=== PATIENT | female | born 1955 | race Caucasian/White ===

== ENCOUNTER 2024-09-04 13:28 | Emergency (ER) | payer MEDICARE, OTHER, SELFPAY ==
--- OUTSIDE RECORDS SUMMARY | 2024-08-24 09:00 | XMS_ITS | Encounter Summary ---
Author Organization [facility] Address [address] [place] [address] Care Team Providers Care Returns Clerk Name Role Phone Antoine Salguero MD Primary Care Provider Reason for Visit * Reason Comments 3 month MWV Encounter Details Date Type Department Care Team (Late st Contact Info) Description 08/24/2024 9:00 AM EDT Office Visit Internal Medicine Main [address] [place] [address] Antoine Salguero MD [address] [place] [address] Medicare annual wellness visit, subsequent (Primary Dx) Social History Tobacco Use Types Packs/Day Years Used Date Smoking Tobacco: Never Smokeless Tobacco: Never Alcohol Use Standard Drinks/Week Comments Yes 0 (1 standard drink = 0.6 oz pur e alcohol) occasional PHQ-2 Answer Date Recorded PHQ-9 Total Score 0 08/17/2024 Humiliation, Afraid, Rape, and Kick questionnair e Answer Date Recorded Within the last year, have y ou been afraid of your partner or ex-partner? No 08/24/2024 Within the last year, have y ou been humiliated or emotionally abused in other ways by your partner or ex-partner? No Within the last year, have y ou been kicked, hit, slapped, or otherwise physically hurt by your partner or ex-partner? No 08/24/2024 Within the last year, have y ou been raped or forced to have any kind of sexual activity by your partner or ex-partner? No 08/24/2024 Social Connection and Isolation Panel Answer Date Recorded In a typical week, how many times do you talk on the phone with family, friends, or neighbors? More than three times a week 08/24/2024 How often do you get togethe r with friends or relatives? More than three times a week 08/24/2024 How often do you attend chur or gnosticist services? Never 08/24/2024 Do you belong to any clubs o r organizations such as religion groups, unions, fraternal or athletic groups, or school groups? No 08/24/2024 How often do you attend meet ings of the clubs or organizations you belong to? Never 08/24/2024 Are you , , di vorced, , never , or living with a partner? 08/24/2024 AUDIT-C Answer Date Recorded Q1: How often do you have a drink containing alc ohol? 2-4 times a month 08/24/2024 Q2: How many drinks containi ng alcohol do you have on a typical day when you are drinking? 1 or 2 08/24/2024 Q3: How often do you have si x or more drinks on one occasion? Never 08/24/2024 Overall Financial Resource Strain (CARDIA) Answe r Date Recorded How hard is it for you to pa y for the very basics like food, housing, medical care, and heating? Not hard at all 08/24/2024 [facility] - Occupational Stress Questionnaire Answer Date Recorded Do you feel stress - tense, restless, nervous, or anxious, or unable to sleep at night because your mind is troubled all the time - these days? Not at all 08/24/2024 Exercise Vital Sign Answer Date Recorde d On average, how many days pe r week do you engage in moderate to strenuous exercise (like a brisk walk)? 7 days 08/24/2024 On average, how many minutes do you engage in exercise at this level? 60 min 08/24/2024 Hunger Vital Sign Answer Date Recorded Within the past 12 months, y ou worried that your food would run out before you got the money to buy more. Never true 08/25/19 25 Within the past 12 months, t he food you bought just didn't last and you didn't have money to get more. Never true 08/24/2024 PRAPARE - Transportation Answer Date Re corded In the past 12 months, has l ack of transportation kept you from medical appointments or from getting medications? No 08/03 In the past 12 months, has l ack of transportation kept you from meetings, work, or from getting things needed for daily living? No 08/24/2024 Housing Stability Vital Sign Answer Salvador e Recorded In the last 12 months, was t here a time when you were not able to pay the mortgage or rent on time? No 08/24/2024 In the past 12 months, how m any times have you moved where you were living? 1 08/24/2024 At any time in the past 12 m [facility], were you homeless or living in a fdc (including now)? No 08/24/2024 Comments Unknown Sex and Gender Information Value Date Recorded Sex Assigned at Not on file Legal Sex Female 11:20 AM EDT Gender Identity Not on file Sexual Orientation Not on file documented as of this encounter Last Filed Vital Signs Vital Sign Reading Time Taken Comments Blood Pressure 144/74 08/24/2024 10:04 AM EDT Pulse 61 08/24/2024 10:04 AM EDT Temperature 36.3 C (97.4 F) 08/24/2024 8:54 AM EDT Respiratory Rate 18 08/24/2024 8:54 AM EDT Oxygen Saturation 96% 08/24/2024 8:54 AM EDT Inhaled Oxygen Concentration - - Weight 100.6 kg (221 lb 11.2 oz) 08/24/2024 8:54 AM EDT Height 167.6 cm (5' 6 ) 08/24/2024 8:54 AM EDT Body Mass Index 35.78 08/24/2024 8:54 AM EDT documented in this encounter Functional Status * AUDIT-C Score Answer Date of Assessment Author 2 08/24/2024 9:23 AM EDT Antoine Salguero MD * Question Answer Date of Assessment Author Q1: How often do you have a drink containing alcohol? 2-4 times a month 08/24/2024 9:23 AM Antoine Mayen MD Q2: How many drinks containing alcohol do you have on a typical day when you are drinking? 1 or 2 08/24/2024 9:23 AM Antoine Mayen MD Q3: How often do you have six or more drinks on one occasion? Never 08/24/2024 9:23 AM Antoine Mayen MD documented as of this encounter Progress Notes * Antoine Salguero MD - 08/24/2024 9:00 AM EDT Images from the original note were not included. Sera Herndon a 69 year old female presents today for a reason for visit of 3 month MW . 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 She states she is pending an MRI of her hip. She did get a cortisone injection which did help initially. She could not tolerate rosuvastatin due to myalgias. She states blood pressure at home is usually 120s/70s, but has not been taking it. She reports having an eye exam 3 weeks ago and was recommended for possible blepharoplasty and to get a referral from her PCP. She is interested in possible weight loss medication such as wegovy. She states that her daughter is on the medication. Her power of assistant attorney general is Broderick Herndon, her . She is full code. Power of Last eye exam 2022. She will get the flu and COVID-vaccine at her pharmacy. No RSV or shingles vaccine. She did not get her colonoscopy in [place]. Colonoscopy 05/13/2024 3 polyps, due in 2027. DEXA donein 2023, osteopenia. Mammo done September 2023, normal Vitals: 08/24/24 0854 BP: (!) 148/70 BP Location: right arm Patient Position: sitting Pulse: 64 Resp: 18 Temp: 97.4 °F TempSrc: Temporal SpO2: 96% Weight: 221 lb 11.2 oz (100.6 kg) Height: 5' 6 (1.676 m) BMI (Calculated): 35.8 (BMI >30) Patient has a risk factor of obesity, refer to nutrition The following Histories were reviewed/updated: Tobacco Allergies Meds Med Hx Surg Hx Fam Hx Soc Hx No Known Allergies Current Outpatient Medications: acetaminophen (TYLENOL) 650 mg 8 hr tablet, Take 650 mg every 8 (eight) hours as needed by mouth for mild pain., Disp: , Rfl: albuterol HFA (PROVENTIL HFA;VENTOLIN HFA) 90 mcg/actuation inhaler, Inhale 1 puff every 6 (six) hours as needed for wheezing., Disp: , Rfl: amLODIPine (NORVASC) 5 mg tablet, Take 1 tablet once daily by mouth., Disp: 90 tablet, Rfl: 1 meloxicam (MOBIC) 15 mg tablet, Take 1 tablet once daily by mouth., Disp: 90 tablet, Rfl: 1 montelukast (SINGULAIR) 10 mg tablet, Take 1 tablet nightly by mouth., Disp: 90 tablet, Rfl: 1 rosuvastatin (Crestor) 5 mg tablet, Take 1 tablet daily by mouth. (Patient not taking: Reported on 08/24/2024), Disp: 90 tablet, Rfl: 1 No past medical history on file. Past Surgical History: Procedure Laterality Date ACHILLES TENDON REPAIR APPENDECTOMY BREAST LUMPECTOMY SECTION HYSTERECTOMY Family History Problem Relation Name Age of Onset Hemochromatosis Mother Social History Tobacco Use Smoking Status Never Smokeless Tobacco Never Social History Substance and Sexual Activity Alcohol Use Yes Comment: occasional Social History Substance and Sexual Activity Drug Use Never Lifestyle Activity Level: Moderate Exercise Type: Swimming Exercise Frequency: 2-3 times a week Sexually Active?: Yes Home Safety: Smoke Detectors?: Yes Stairs at Home?: No Seat Belt Use?: Yes Patient Care Team: Antoine Salguero MD as PCP - General Seble Mai MD (Emergency Medicine) Leonard Henderson MD (Inactive) (Hematology and Oncology) OLIVIA Reese (Dermatology) Myrtle Low DO (Inactive) (Gastroenterology) Mayur Dow MD (Orthopedic Surgery) Nick Walton PA-C (Orthopedic Surgery) Vision: Visual acuity screening completed OD: 20/40 OS: 20/40 OU: 20/40 Voluntary Advance Care Planning: Educational Materials Regarding: MWV Screenings Date/Time Cognitive Function Total 08/24/24 0904 0 08/17/24629 -- Date/Time CAGE Total 08/24/24 0904 -- 08/17/24629 0 (P) Date/Time PHQ-9 Total Score 08/24/24 0904 -- 08/17/2430 0 (P) Date/Time Fall Risk Total Score 08/24/24 0904 -- 08/17/24629 -- Date/Time Are you having any problems with the activities of Daily Living? 08/24/24 0904 -- 08/17/24629 No (P) Date/Time Problems with the Activities of Daily Livin08/24/24 0904 -- 08/17/24629 -- Date/Time Daily Living Problems: 08/24/24 0904 -- 08/17/24629 -- Date/Time Screening Not Performed: 08/24/24 0904 -- 08/17/24629 -- Date/Time Medical Reason Comments: 08/24/24 0904 -- 08/17/24629 -- Date/Time PHQ-9 Depression Screening Interpretation 08/24/24 0904 -- 08/17/24629 -- Date/Time Screening Not Performed 08/24/24 0904 -- 08/17/24629 -- Date/Time Comments 08/24/24903 -- 08/17/24629 -- Cognitive Assessment: Cognitive Function Total: 0 Pain Scale Ratin (08/24/2024 9:04 AM) No results found. Goals Addressed None Health Maintenance Topic Date Due Medicare Wellness Visit Never done Eye Exam Never done Cognitive Assessment Never done DEXA Scan Never done Hepatitis C Screening Never done Complete Physical Never done Health Maintenance Reviewed Never done Zoster (Shingrix) Vaccines (1 of 2) Never done Clinical Breast Exam Never done COVID-19 Vaccine (3 - Pfizer risk series) 06/13/2020 Influenza Vaccine (Season Ended) 2024 Total Body Exam 04/22/2025 Colorectal Cancer Screening 05/14/2027 Lipid Panel 08/17/2029 HIB Vaccines Aged Out IPV Vaccines Aged Out Hepatitis A Vaccines Aged Out Meningococcal Vaccine Aged Out HPV Vaccines Aged Out DTaP,Tdap,and Td Vaccines Discontinued Mammogram Discontinued Pap Smear Discontinued MMR Vaccines Discontinued Varicella Vaccines Discontinued RSV Immunization Discontinued Pneumococcal Vaccine: 65+ Years Discontinued Risk Factors Problem List Items Addressed This Visit None Today's Visit Diagnoses Codes Medicare annual wellness visit, subsequent - Primary ICD-10-CM: Z00.00 ICD-9-CM: V70.0 Encounter Diagnoses Code Name Primary? Z00.00 Medicare annual wellness visit, subsequent Yes 1. Medicare annual wellness visit, subsequent Her power of assistant attorney general is Broderick Herndon, her . She is full code. Power of Last eye exam 2022. She will get the flu and COVID-vaccine at her pharmacy. No RSV or shingles vaccine. She did not get her colonoscopy in [place]. Colonoscopy 05/13/2024 3 polyps, due in 2027. DEXA donein 2023, osteopenia. Mammo done September 2023, normal Follow up in 3 months for asthma Antoine Salguero MD Department of Internal Medicine [address] [place] [phone] documented in this encounter Plan of Treatment Upcoming Encounters Date Type Department Care Team (Late st Contact Info) Description 11/24/2024 8:00 AM EDT Office Visit Internal Medicine Main [address] [place] [phone] Antoine Salguero MD [address] [place] [phone] 04/28/2025 8:00 AM EST Office Visit Dermatology [place] [address] [place] [address] Ludy Das PA [address] [place] [address] documented as of this encounter Visit Diagnoses Diagnosis Medicare annual wellness visit, subsequent- Primary documented in this encounter Care Teams Returns Clerk Relationship Specialty Start Date End Date Antoine Salguero MD [address] [place] [id number] PCP - General 03/06/23 documented as of this encounter
[2024-09-04 13:34] VITALS: BP 177/70; PULSE 84; TEMP 37.3; O2SAT 97; BMI 35.7
--- OUTSIDE RECORDS SUMMARY | 2024-09-04 13:40 | XMS_ITS | Encounter Summary ---
Author Organization [facility] Address [address] [place] [address] Care Team Providers Care Seam Steamer Name Role Phone Antoine Salguero MD Primary Care Provider Encounter Details Date Type Department Care Team (Late Contact Info) Description 08/18/2024 Results Follow-Up Internal Medicine Main [address] [place] [address] Anotine Salguero MD [address] [place] [phone] CBC WITH AUTOMATED DIFF, COMPREHENSIVE METABOLIC PANEL, LIPID PROFILE, HEMOGLOBIN A1C Social History Tobacco Use Types Packs/Day Years Used Date Smoking Tobacco: Never Smokeless Tobacco: Never Alcohol Use Standard Drinks/Week Comments Yes 0 (1 standard drink = 0.6 oz pur e alcohol) occasional PHQ-2 Answer Date Recorded PHQ-9 Total Score 0 08/17/2024 Comments Unknown Sex and Gender Information Value Date Recorded Sex Assigned at Not on file Legal Sex Female 11:20 AM EDT Gender Identity Not on file Sexual Orientation Not on file documented as of this encounter Plan of Treatment Upcoming Encounters Date Type Department Care Team (Late Contact Info) Description 11/24/2024 8:00 AM EDT Office Visit Internal Medicine Main [address] [place], [place] [phone] Antoine Salguero MD [address] [place] [address] 04/28/2025 8:00 AM EST Office Visit Dermatology [place] [address] [place] [address] Ludy Das PA [address] [place] [address] documented as of this encounter Visit Diagnoses Not on filedocumented in this encounter Care Teams Seam Steamer Relationship Specialty Start Date End Date Antoine Salguero MD [address] [place] [id number] PCP - General 03/06/23 documented as of this encounter
--- OUTSIDE RECORDS SUMMARY | 2024-09-04 13:40 | XMS_ITS | Encounter Summary ---
Author Organization [facility] Address [address] [place] [facility] [place] [address] Care Team Providers Care Sales Product Manager Name Role Phone Alyssa Navarrete MD Unavailable Alyssa Navarrete MD Primary Care Provider [phone] Alyssa Navarrete MD Unavailable Unallocated, Noms Provider Primary Care Provi quan Encounter Details Date Type Department Care Team (Late st Contact Info) Description 11/11/2023 Orders Only [facility] [address] [facility] [place] [address] Alyssa Navarrete MD [address] [place] [address] Social History Tobacco Use Types Packs/Day Years Used Date Smoking Tobacco: Never Smokeless Tobacco: Never Alcohol Use Standard Drinks/Week Comments Yes 1 (1 standard drink = 0.6 oz pure alcohol) caffeine intake: 1-2 cups per day tea Humiliation, Afraid, Rape, and Kick questionnair e Answer Date Recorded Within the last year, have y ou been afraid of your partner or ex-partner? No 08/08/2022 Within the last year, have y ou been humiliated or emotionally abused in other ways by your partner or ex-partner? No Within the last year, have y ou been kicked, hit, slapped, or otherwise physically hurt by your partner or ex-partner? No 08/08/2022 Within the last year, have y ou been raped or forced to have any kind of sexual activity by your partner or ex-partner? No 08/08/2022 Social Connection and Isolat ion Panel [NHANES] Answer Date Recorded In a typical week, how many times do you talk on the phone with family, friends, or neighbors? More than three times a week 08/08/2022 How often do you get togethe r with friends or relatives? Three times a week 08/08/2022 How often do you attend chur ch or sikh services? 1 to 4 times per year 08/08/2022 Do you belong to any clubs o r organizations such as protestant groups, unions, fraternal or athletic groups, or school groups? Yes 08/08/2022 How often do you attend meet ings of the clubs or organizations you belong to? More than 4 times per year 08/08/2022 Are you , , di vorced, , never , or living with a partner? 08/08/2022 AUDIT-C Answer Date Recorded Q1: How often do you have a drink containing alc ohol? 2-4 times a month 08/08/2022 Q2: How many drinks containi ng alcohol do you have on a typical day when you are drinking? 1 or 2 08/08/2022 Q3: How often do you have si x or more drinks on one occasion? Never 08/08/2022 Overall Financial Resource Strain (CARDIA) Answe r Date Recorded How hard is it for you to pa y for the very basics like food, housing, medical care, and heating? Not hard at all 08/08/2022 PHQ-2 Answer Date Recorded Patient Health Questionnaire-2 Score 0 08/02/2023 [facility] Occupat ional Health - Occupational Stress Questionnaire Answer Date Recorded Do you feel stress - tense, restless, nervous, or anxious, or unable to sleep at night because your mind is troubled all the time - these days? Not at all 08/08/2022 Exercise Vital Sign Answer Date Recorde d On average, how many days pe r week do you engage in moderate to strenuous exercise (like a brisk walk)? 3 days 08/08/2022 On average, how many minutes do you engage in exercise at this level? 30 min 08/08/2022 Hunger Vital Sign Answer Date Recorded Within the past 12 months, y ou worried that your food would run out before you got the money to buy more. Never true 08/09/19 Within the past 12 months, t he food you bought just didn't last and you didn't have money to get more. Never true 08/08/2022 PRAPARE - Transportation Answer Date Re corded In the past 12 months, has l ack of transportation kept you from medical appointments or from getting medications? Yes 09/2022 In the past 12 months, has l ack of transportation kept you from meetings, work, or from getting things needed for daily living? Yes 08/08/2022 Housing Stability Vital Sign Answer Salvador e Recorded In the last 12 months, was t here a time when you were not able to pay the mortgage or rent on time? No 08/08/2022 In the last 12 months, how many places have you lived? 2 08/08/2022 In the last 12 months, was t here a time when you did not have a steady place to sleep or slept in a usp (including now)? No 08/08/2022 Comments Unknown Sex and Gender Information Value Date Recorded Sex Assigned at Female 08/08/2022 9:34 AM EDT Legal Sex Female 7:01 PM EDT Gender Identity Female 05/16/2022 7:01 PM EDT Sexual Orientation Not on file documented as of this encounter Plan of Treatment Not on file documented as of this encounter Procedures Procedure Name Priority Date/Time Associated Diagnosis Comments DIABETIC RETINOPATHY SCREENING - OU - BOTH EYES Routine 11/08/2023 3:26 PM EDT documented in this encounter Results * Diabetic Retinopathy Screening - OU - Both Eyes (11/08/2023 3:26 PM EDT) Anatomical Region Laterality Modality Head Other us Alyssa Navarrete MD OPHTH PHOTOGRAPHY Final Result documented in this encounter Visit Diagnoses Not on filedocumented in this encounter Additional Health Concerns Assessment Noted Time PHQ-9 Depression Total Score: 0 08/10/19 23 10:00 AM EDT documented as of this encounter Care Teams Sales Product Manager Relationship Specialty Start Date End Date Alyssa Navarrete MD [address] [place], [place] [phone] PCP - ACO Reach 07/03/23 04/09/24 Alyssa Navarrete MD [address] [place] [address] PCP - General Family Medicine 08/29/23 06/17/24 Alyssa Navarrete MD [address] [place], [place] [phone] PCP - ACO Reach 04/17/24 06/04/24 Unallocated, Noms Provider, [address] [place] [address] PCP - General Family Medicine 06/18/24 documented as of this encounter
--- OUTSIDE RECORDS SUMMARY | 2024-09-04 13:40 | XMS_ITS | Encounter Summary ---
Author Organization [facility] Address [address] [facility] [place] [address] Care Team Providers Care Disability Services Coordinator Name Role Phone Alyssa Navarrete MD Unavailable Alyssa Navarrete MD Primary Care Provider [phone] Unallocated, Noms Provider Primary Care Provi quan Alyssa Navarrete MD Unavailable Alyssa Navarrete MD Primary Care Provider [phone] Unallocated, Noms Provider Primary Care Provi quan Alyssa Navarrete MD Primary Care Provider [phone] Alyssa Navarrete MD Unavailable Unallocated, Noms Provider Primary Care Provi quan Encounter Details Date Type Department Care Team (Late st Contact Info) Description 09/03/2022 Abstract [facility] [address] [facility] [place] [address] Alyssa Navarrete MD [address] [place] [address] Social History Tobacco Use Types Packs/Day Years Used Date Smoking Tobacco: Never Smokeless Tobacco: Never Alcohol Use Standard Drinks/Week Comments Not Currently 0 (1 standard drink = 0.6 oz pur e alcohol) Humiliation, Afraid, Rape, and Kick questionnair e [...] often do you attend chur ch or yarsani services? 1 to 4 times per year 08/08/2022 Do you belong to any clubs o r organizations such as shinto groups, unions, fraternal or athletic groups, or [...] Date Recorded Patient Health Questionnaire-2 Score 0 08/09/2022 [facility]ational [facility] Questionnaire Answer Date [...] money to buy more. Never true 08/09/19 23 Within the past 12 months, t he [...] place to sleep or slept in a half-way (including now)? No 08/08/2022 Comments Unknown Sex and Gender Information Value Date Recorded Sex Assigned at Female 08/08/2022 9:34 AM EDT Legal Sex Female 7:01 PM EDT Gender Identity Female 05/16/2022 7:01 PM EDT Sexual Orientation Not on file COVID-19 Exposure Response Date Recorded In the last 10 days, have yo u been in contact with someone who was confirmed or suspected to have Coronavirus/COVID-19? No / Unsure 09/03/2022 9:10 AM EDT documented as of this encounter Plan of Treatment Not on file documented as of this encounter Visit Diagnoses Not on filedocumented in this encounter Additional Health Concerns Assessment Noted Time PHQ-9 Depression Total Score: 0 08/10/19 10:00 AM EDT documented as of this encounter Care Teams Disability Services Coordinator Relationship Specialty Start Date End Date Alyssa Navarrete MD [address] [place] [address] PCP - ACO Reach 07/26/22 05/02/23 Alyssa Navarrete MD [address] [place] [address] PCP - General 08/08/22 03/18/23 Unallocated, Keesha Mullen MD [address] [place], [place] [address] [place] [address] PCP - General Family Medicine 03/19/23 08/08/23 Alyssa Navarrete MD [address] [facility] [place] [address] PCP - ACO Reach 07/03/23 04/09/24 Alyssa Navarrete MD [address] [place] [address] PCP - General Family Medicine 08/09/23 08/25/23 Unallocated, [place] [address] [place] [address] PCP - General Family Medicine 08/26/23 08/28/23 Alyssa Navarrete MD [address] [facility] [place] [address] PCP - General Family Medicine 08/29/23 06/17/24 Alyssa Navarrete MD [address] [facility] [place] [address] PCP - ACO Reach 04/17/24 06/04/24 Unallocated, Noms Provider, [address] [place] [address] PCP - General Family Medicine 06/18/24 documented as of this encounter
--- OUTSIDE RECORDS SUMMARY | 2024-09-04 13:40 | XMS_ITS | Encounter Summary ---
Author Organization [facility] Address [address] [place] [address] Care Team Providers Care Tobacco Stemmer Name Role Phone Antoine Salguero MD Primary Care Provider [phone] Encounter Details Date Type Department Care Team (Late st Contact Info) Description 08/26/2024 Results Follow-Up Orthopaedics Main [address] [place] [address] Nick Walton PA-C [address] [place] [address] MRI HIP WITHOUT CONTRAST Social History Tobacco Use Types Packs/Day Years [...] 08/24/2024 How often do you attend chur ch or islam services? Never 08/24/2024 Do you belong to any clubs o r organizations such as islam groups, unions, fraternal or athletic groups, or [...] and heating? Not hard at all 08/24/2024 [facility] of Occupat ional Health - Occupational Stress [...] any time in the past 12 m [facility], were you homeless or living in a alf (including now)? No 08/24/2024 Comments Unknown Sex [...] EDT Office Visit Internal Medicine Main [address] [place] [address] Antoine Salguero MD [address] [place] [address] 04/28/2025 8:00 AM EST Office Visit Dermatology [place] [address] [place] [address] Ludy Das PA [address] [place] [address] documented as of this encounter Visit Diagnoses Not on filedocumented in this encounter Care Teams Tobacco Stemmer Relationship Specialty Start Date End Date Antoine Salguero MD [address] [place] [address] PCP - General 03/06/23 documented as of this encounter
--- OUTSIDE RECORDS SUMMARY | 2024-09-04 13:40 | XMS_ITS | Encounter Summary ---
Author Organization [facility] Address [address] [place] [address] Care Team Providers Care Bail Attacher Name Role Phone Antoine Salguero MD Primary Care Provider [phone] Encounter Details Date Type Department Care Team (Late st Contact Info) Description 05/13/2024 Orders Only Gastroenterology Main [address] [place] [address] Myrtle Low DO [address] [place] [address] Social History Tobacco Use Types Packs/Day Years Used Date Smoking Tobacco: Never Smokeless Tobacco: Never Alcohol Use Standard Drinks/Week Comments Yes 0 (1 standard drink = 0.6 oz pur e alcohol) occasional Comments Unknown Sex and Gender Information Value Date Recorded Sex Assigned at Not on file Legal Sex Female 11:20 AM EDT Gender Identity Not on file Sexual Orientation Not on file documented as of this encounter Plan of Treatment Upcoming Encounters Date Type Department Care Team (Late st Contact Info) Description 11/24/2024 8:00 AM EDT Office Visit Internal Medicine Main [address] [place] [address] Antoine Salguero MD [address] [place] [address] 04/28/2025 8:00 AM EST Office Visit Dermatology [place] [address] [place] [address] Ludy Das PA [address] [place] [address] documented as of this encounter Visit Diagnoses Not on filedocumented in this encounter Care Teams Bail Attacher Relationship Specialty Start Date End Date Antoine Salguero MD [address] [place] [address] PCP - General 03/06/23 documented as of this encounter
--- OUTSIDE RECORDS SUMMARY | 2024-09-04 13:40 | XMS_ITS | Encounter Summary ---
Author Organization [facility] Address [address] [place] [address] Care Team Providers Care Honing Machine Set Up Operator Tool Name Role Phone Antoine Salguero MD Primary Care Provider [phone] Encounter Details Date Type Department Care Team (Late st Contact Info) Description 05/14/2024 Orders Only Gastroenterology Main [address] [place] [address] Myrtle Low, [address] [place] [address] Screening for malignant neoplasm of colon Social History Tobacco Use Types Packs/Day Years [...] EDT Office Visit Internal Medicine Main [address] [place] [address] Antoine Salguero MD [address] [place] [address] 04/28/2025 8:00 AM EST Office Visit Dermatology [place] [address] [place] [address] Ludy Das PA [address] [place] [address] documented as of this encounter Procedures Procedure Name Priority Date/Time Associated Diagnosis Comments COLONOSCOPY (G0121) Routine 05/13/2024 Screening for malignant neoplasm of colon documented in this encounter Results * Colonoscopy Screening - MEDICARE (G0121) (05/13/2024) Myrtle Low DO GI PROC ORDERABLES Final Result documented in this encounter Visit Diagnoses Diagnosis Screening for malignant neoplasm of colon documented in this encounter Care Teams Honing Machine Set Up Operator Tool Relationship Specialty Start Date End Date Antoine Salguero MD [address] [place] [address] PCP - General 03/06/23 documented as of this encounter
--- OUTSIDE RECORDS SUMMARY | 2024-09-04 13:40 | XMS_ITS | Clinical Summary ---
Author Organization [facility] Address [address] [place] [address] Care Team Providers Care Senior Portfolio Manager Name Role Phone Unallocated, [facility] Provider Primary Care Provi quan Allergies No known active allergies Medications albuterol HFA 90 mcg/act inhalerIndications: Allergic rhinitis due to pollen, unspecified seasonality Inhale 1 puff every 6 (six) hours if needed for wheezing. 18 g 3 3 Active atorvastatin (Lipitor) 10 MG tabletIndications:H yperlipidemia, unspecified hyperlipidemia type Take 1 tablet (10 mg) by mouth Daily 100 tablet 3 4 Active amLODIPine (Norvasc) 5 MG tabletIndications:E ssential hypertension Take 1 tablet (5 mg) by mouth Daily 90 tablet 3 4 Active montelukast (Singulair) 10 MG tabletIndications:A llergic rhinitis due to pollen, unspecified seasonality Take 1 tablet (10 mg) by mouth at bedtime 30 tablet 11 4 09/12/19 25 Active meloxicam (Mobic) 15 MG tabletIndications:O ther chronic pain TAKE 1 TABLET BY MOUTH IN THE MORNING 40 tablet 5 Active Active Problems Problem Noted Date Diagnosed Date Osteopenia 08/10/2023 Body mass index (BMI) 36.0-36.9, adult 4 Abnormal mammogram of right breast 08/08/2022 Asthma in adult 08/08/2022 Assessment & Plan (08/09/2022 4:54 PM EDT): Spirometry today wnl. Sx may be related to marquita vs postnasal discharge Rx for flonase and singulair Con t to [facility] prn, recheck in 1 mnth Colon adenoma 08/08/2022 Overview (08/09/2022): Reepat colonoscopy 2024 Ductal carcinoma in situ (DCIS) of breast 2022 Dyslipidemia 08/08/2022 Essential hypertension 08/08/2022 Assessment & Plan (08/09/2022 4:55 PM EDT): Good contorl will stop low dose marquita inh due to cough and rehceck in month Familial hemochromatosis 08/08/2022 H/O: hysterectomy 08/08/2022 Morbid (severe) obesity due to excess calories 0 08/08/2022 Other specified disorders of bone density and structure, right thigh 08/08/2022 Primary osteoarthritis involving multiple joints 08/08/2022 Type 2 diabetes mellitus with other specified co mplication 08/08/2022 Assessment & Plan (08/09/2022 4:56 PM EDT): Due for labs Mild intermittent asthma 02/02/2016 Primary osteoarthritis 02/16/2015 Resolved Problems Problem Noted Date Diagnosed Date Resolved Date Constipation 08/08/2022 08/09/2022 Benign neoplasm of colon 04/11/201811/2022 Immunizations Immunization Administration Dates Next Due Influenza, High Dose Seasona l, Preservative Free 12/02/2019,12/07/2018 Influenza, High-dose Seasona l, Quadrivalent, Preservative Free 11/29/2020 Influenza, Injectable, MDCK, preservative free 01/07/2017 Influenza, injectable, quadr ivalent, preservative free 12/03/2019,12/08/2018,12/02/2017,2015 Influenza, seasonal, injectable 12/06/2016,11/23 Influenza, seasonal, injecta ble, preservative free 12/05/2017,01/07/2017,12/20/2015 Novel [id number], preservative-free 02/21/2009 Pneumococcal Conjugate PCV 20 07/10/2021 Zoster, Recombinant 11/07/2018 Family History Medical History Relation Name Comments epilepsy Brother 1 Alcohol abuse Brother 2 Guy Matthews Alcohol abuse Brother 3 Dereje Matthews Intellectual Disability Brother 4 Boaz Matthews Learning disabilities Brother 4 Boaz Matthews Alcohol abuse Father Boaz Matthews Cirrhosis Father Boaz Matthews Arthritis Mother Josi Matthews COPD Mother Josi Matthews Cancer Mother Josi Matthews Diabetes Mother Josi Matthews Heart disease Mother Josi Matthews Heart failure Mother Josi Matthews Hemochromatosis Mother Josi Matthews Hypertension Mother Josi Matthews Miscarriages / Stillbirths Mother Josi Matthews Uterine cancer Mother Josi Matthews Cancer Sister Deepika Restrepo Relation Name Status Comments Brother 1 Brother 2 Guy Matthews Brother 3 Dereje Matthews Brother 4 Boaz Matthews Father Boaz Matthews Mother Josi Matthews Sister Deepika Restrepo Social History Tobacco Use Types Packs/Day Years Used Date Smoking Tobacco: Never Smokeless Tobacco: Never Tobacco Cessation:Counseling Given: Not Answered Alcohol Use Standard Drinks/Week Comments Yes 1 [...] week 08/08/2022 How often do you attend [facility] or restoration services? 1 to 4 times per year 08/08/2022 Do you belong to any clubs o r organizations such as holiness groups, unions, fraternal or athletic groups, or [...] Recorded Patient Health Questionnaire-2 Score 0 08/02/2023 [facility] of Occupat ional Health - Occupational Stress [...] place to sleep or slept in a care home (including now)? No 08/08/2022 Comments Unknown Sex and Gender Information Value Date Recorded Sex Assigned at Female 08/08/2022 9:34 AM EDT Legal Sex Female 7:01 PM EDT Gender Identity Female 05/16/2022 7:01 PM EDT Sexual Orientation Not on file Last Filed Vital Signs Vital Sign Reading Time Taken Comments Blood Pressure 122/82 08/09/2023 11:03 AM EDT Pulse 60 08/09/2023 11:03 AM EDT Temperature - - Respiratory Rate 16 08/09/2023 11:03 AM EDT Oxygen Saturation - - Inhaled Oxygen Concentration - - Weight 101 kg (223 lb) 08/09/2023 11:03 AM EDT Height 167 cm (5' 5.75 ) 08/09/2023 11:03 AM EDT Body Mass Index 36.27 08/09/2023 11:03 AM EDT Plan of Treatment Health Maintenance Due Date Last Done Comments CT Colonography 1954 FIT-DNA 1954 FIT 1954 FOBT 1955 Sigmoidoscopy 1954 Diabetes: Hemoglobin A1C 11/09/2023 024, 08/09/2022, 09/29/2021, Additional history exists Diabetes: Urine Protein Screening 08/08/2024 08/09/2023, 08/09/2022, 07/10/2021, Additional history exists Medicare Annual Wellness (AWV) 08/08/2024 0 08/09/2023, 08/09/2022, 07/10/2021 Influenza Vaccine (#1) 2024 , 12/03/2019, 12/02/2019, Additional history exists Diabetes: Retinopathy Screening 11/07/2025 4 Colonoscopy 04/03/2028 04/03/2018, 04/03/2018 Colorectal Cancer Screening 04/03/2028 Pneumococcal Vaccine: 65+ Years Completed 2 Mammogram Discontinued 07/20/2021, 07/02, 06/20/2020, Additional history exists Procedures Procedure Name Priority Date/Time Associated Diagnosis Comments DIABETIC RETINOPATHY SCREENING - OU - BOTH EYES Routine 11/08/2023 3:26 PM EDT MICROALBUMIN / CREATININE URINE RATIO Routine 08/09/2023 3:00 PM EDT Type 2 diabetes mellitus without complication, without long-term current use of insulin (HCC) POCT GLYCOSYLATED HEMOGLOBIN (HGB A1C) Routine 08/09/2023 11:25 AM EDT Type 2 diabetes mellitus without complication, without long-term current use of insulin (HCC) BI MAMMOGRAM SCREENING BILATERAL Routine 07/20/2021 12:00 PM EDT COLONOSCOPY Routine 04/03/2018 12:00 PM EST from Last 3 Months or Most Recently Relevant to Health Maintenance Results * Diabetic Retinopathy Screening - OU - Both Eyes (11/08/2023 3:26 PM EDT) Anatomical Region Laterality Modality Head Other us Alyssa Navarrete MD OPHTH PHOTOGRAPHY Final Result * Microalbumin / creatinine urine ratio (08/09/2023 3:00 PM EDT) CREATININE, RANDOM URINE 32 20 - 275 mg/dL [facility] ALBUMIN, URINE <0.2 See Note: mg/dL [facility] Comment: Reference Range: Reference Range Not established ALBUMIN/CREATININE RATIO, RANDOM URINE NOTE <30 mg/g creat [facility] Comment: NOTE: The urine albumin value is less than 0.2 mg/dL therefore we are unable to calculate excretion and/or creatinine ratio. The ADA defines abnormalities in albumin excretion as follows: Albuminuria Category Result (mg/g creatinine) Normal to Mildly increased <30 Moderately increased 30-299 Severely increased > OR = 300 The ADA recommends that at least two of three specimens collected within a 3-6 month period be abnormal before considering a patient to be within a diagnostic category. Urine Urine specimen obtained by clean catch procedure / Unknown 08/09/2023 3:00 PM EDT 08/09/2023 3:00 PM EDT Narrative [facility] - 08/12/2023 3:28 PM EDT SPLIT 08/09/2023 FROM [id number] Resulting Agency Comment Performing Organization Information Site ID: [id number] Name: [facility] Address: [address] [facility] [place] [address] Director: Luan Miranda MD us Alyssa Navarrete MD LAB URINE ORDERABLES Final Resul t [facility] * POCT glycosylated hemoglobin (Hb A1C) docked device (08/09/2023 11:25 AM EDT) Hemoglobin A1C 5.9 Blood Venous blood specimen / Unknown 08/09/2023 11:25 AM EDT us Alyssa Navarrete MD POINT OF CARE TEST ENTER/EDIT OR DERABLES Final Result * Bilateral screening mammogram (07/20/2021 12:00 PM EDT) Anatomical Region Laterality Modality Breast Bilateral Mammography Narrative 07/20/2021 12:00 PM EDT PERFORMED AT [facility] LOCATION:[id number] benign Procedure Note CONVERSION, GENERIC - 09/07/2022 PERFORMED AT [facility] LOCATION:[id number] benign us Alyssa Navarrete MD IMG BI PROCEDURES Final Result * Colonoscopy (04/03/2018 12:00 PM EST) Anatomical Region Laterality Modality Endoscopy 04/03/2018 12:0 0 PM EST Narrative 04/03/2018 12:00 PM EST PERFORMED AT [facility] LOCATION:[id number] Procedure Note CONVERSION, GENERIC - 07/18/2022 PERFORMED AT [facility] LOCATION:[id number] Alyssa Navarrete MD ENDOSCOPY PROCEDURE ORDERABLES F inal Result from Last 3 Months or Most Recently Relevant to Health Maintenance Insurance MEDICARE [employer] Care Teams Senior Portfolio Manager Relationship Specialty Start Date End Date Unallocated, [facility] Provider, [address] [place] [address] PCP - General Family Medicine 06/18/24
--- OUTSIDE RECORDS SUMMARY | 2024-09-04 13:40 | XMS_ITS | Clinical Summary ---
Author Organization [facility] Address [address] [place] [address] Phone Care Team Providers Care Roads Superintendent Name Role Phone Unavailable Primary Care Provider Unavailabl e Social History Tobacco Use Types Packs/Day Years Used Date Smoking Tobacco: Never Assessed Comments Unknown Sex and Gender Information Value Date Recorded Sex Assigned at Not on file Legal Sex Female 1:38 AM EST Gender Identity Not on file Sexual Orientation Not on file Plan of Treatment Health Maintenance Due Date Last Done Comments CT Colonography 1954 Colonoscopy 1954 Colorectal Cancer Screening 1954 FIT-DNA (Cologuard) 1954 FIT 1954 Lipid Panel 1954 Sigmoidoscopy 1954 Hepatitis C Screening 01/07/1972 DTaP/Tdap/Td Vaccines (1 - Tdap) 01/07/1976 Mammogram 1994 Pneumococcal Vaccine (1 of 1 - PCV) 01/07/2004 Zoster Vaccines (1 of 2) 01/07/2004 Yearly Adult Physical 07/11/2022 07/10/2021 , 02/15/2020 COVID-19 Vaccine (3 - 2023-2 5 season) 2023 05/16/2020, 04/25/2020 Influenza Vaccine (#1) 2024 11/29/2020 RSV High Risk: (Elderly (60+ ) or Population) (1 - 1-dose 75+ series) 2029 Bone Density Scan Completed 08/04/2020 HIB Vaccines Aged Out No longer eligi ble based on patient's age to complete this topic HPV Vaccines (No Doses Required) Completed Hepatitis A Vaccines Aged Out No long er eligible based on patient's age to complete this topic Hepatitis B Vaccines Aged Out No long er eligible based on patient's age to complete this topic IPV Vaccines Aged Out No longer eligi ble based on patient's age to complete this topic Meningococcal Vaccine Aged Out No blanca eladia eligible based on patient's age to complete this topic Rotavirus Vaccines Aged Out No longer eligible based on patient's age to complete this topic
--- OUTSIDE RECORDS SUMMARY | 2024-09-04 13:40 | XMS_ITS | Encounter Summary ---
Author Organization [facility] Address [address] [place] [address] Care Team Providers Care Digital Forensics Investigator Name Role Phone Alyssa Navarrete MD Unavailable Alyssa Navarrete MD Primary Care Provider [phone] Unallocated, [facility] Provider Primary Care Provi quan Alyssa Navarrete MD Unavailable Alyssa Navarrete MD Primary Care Provider [phone] Unallocated, [facility] Provider Primary Care Provi quan Alyssa Navarrete MD Primary Care Provider [phone] Alyssa Navarrete MD Unavailable Unallocated, [facility] Provider Primary Care Provi quan Reason for Visit * Reason Comments Med Refill Encounter Details Date Type Department Care Team (Late st Contact Info) Description 10/20/2022 Refill [facility] [address] [place] [phone] Kaylynn Arriaga NP [address] [place], [place] [phone] Other chronic pain Social History Tobacco Use Types Packs/Day Years [...] week 08/08/2022 How often do you attend [facility] or uatsdin services? 1 to 4 times per year 08/08/2022 Do you belong to any clubs o r organizations such as restorationist groups, unions, fraternal or athletic groups, or [...] Recorded Patient Health Questionnaire-2 Score 0 08/09/2022 [facility] of Occupat ional Health - Occupational [...] as of this encounter Visit Diagnoses Diagnosis Other chronic pain documented in this encounter Additional Health Concerns Assessment Noted Time PHQ-9 Depression Total Score: 0 08/10/19 23 10:00 AM EDT documented as of this encounter Care Teams Digital Forensics Investigator Relationship Specialty Start Date End Date Alyssa Navarrete MD [address] [place] [address] PCP - ACO Reach 07/26/22 05/02/23 Alyssa Navarrete MD [address] [place] [address] PCP - General 08/08/22 03/18/23 Unallocated, Keesha Mullen MD [address] [place] [address] PCP - General Family Medicine 03/19/23 08/08/23 Alyssa Navarrete MD [address] [place] [address] PCP - ACO Reach 07/03/23 04/09/24 Alyssa Navarrete MD [address] [place] [address] PCP - General Family Medicine 08/09/23 08/25/23 Unallocated, Keesha Mullen MD [address] [place], [place] [address] [address] PCP - General Family Medicine 08/26/23 08/28/23 Alyssa Navarrete MD [address] [place] [address] PCP - General Family Medicine 08/29/23 06/17/24 Alyssa Navarrete MD [address] [place] [address] PCP - ACO Reach 04/17/24 06/04/24 Unallocated, Keesha Mullen MD [address] [place] [address] [place] [address] PCP - General Family Medicine 06/18/24 documented as of this encounter
--- OUTSIDE RECORDS SUMMARY | 2024-09-04 13:40 | XMS_ITS | Encounter Summary ---
Author Organization [facility] Address [address] [facility] [place] [address] Care Team Providers Care Automation Qa Lead Name Role Phone Alyssa Navarrete MD Unavailable Alyssa Navarrete MD Primary Care Provider [phone] Unallocated, [facility] Provider Primary Care Provi quan Alyssa Navarrete MD Unavailable Alyssa Navarrete MD Primary Care Provider [phone] Unallocated, [facility] Provider Primary Care Provi quan Alyssa Navarrete MD Primary Care Provider [phone] Alyssa Navarrete MD Unavailable Unallocated, [facility] Provider Primary Care Provi quan Encounter Details Date Type Department Care Team (Late st Contact Info) Description 09/10/2022 Abstract [facility] [address] [place] [address] Alyssa Navarrete MD [address] [place] [address] Social History Tobacco Use Types [...] week 08/08/2022 How often do you attend [facility] or religion services? 1 to 4 times per year 08/08/2022 Do you belong to any clubs o r organizations such as anglican groups, unions, fraternal or athletic groups, or [...] Recorded Patient Health Questionnaire-2 Score 0 08/09/2022 [facility] of Occupat ional Health - Occupational Stress [...] place to sleep or slept in a longterm (including now)? No 08/08/2022 Comments Unknown Sex [...] documented as of this encounter Care Teams Automation Qa Lead Relationship Specialty Start Date End Date Alyssa Navarrete MD [address] [facility] [place] [address] PCP - ACO Reach 07/26/22 05/02/23 Alyssa Navarrete MD [address] [place] [address] PCP - General 08/08/22 03/18/23 Unallocated, Vaishalis ProviderMD [address] [place], [place] [address] [address] PCP - General Family Medicine 03/19/23 08/08/23 Alyssa Navarrete MD [address] [place] [address] PCP - ACO Reach 07/03/23 04/09/24 Alyssa Navarrete MD [address] [place] [address] PCP - General Family Medicine 08/09/23 08/25/23 Unallocated, Vaishalis ProviderMD [address] [place] [address] [place] [address] PCP - General Family Medicine 08/26/23 08/28/23 Alyssa Navarrete MD [address] [facility] [place] [address] PCP - General Family Medicine 08/29/23 06/17/24 Alyssa Navarrete MD [address] [facility] [place] [address] PCP - ACO Reach 04/17/24 06/04/24 Unallocated, [facility] Provider, MD [address] [place] [address] PCP - General Family Medicine 06/18/24 documented as of this encounter
--- OUTSIDE RECORDS SUMMARY | 2024-09-04 13:40 | XMS_ITS | Clinical Summary ---
Author Organization [facility] Address [address] [place] [address] Care Team Providers Care Ibm Mainframe Developer Name Role Phone Antoine Salguero MD Primary Care Provider [phone] Allergies No known active allergies Medications albuterol HFA (PROVENTIL HFA;VENTOLIN HFA) 90 mcg/actuation inhaler Inhale 1 puff every 6 (six) hours as needed for wheezing. Active acetaminophen (TYLENOL) 650 mg 8 hr tablet Take 650 mg every 8 (eight) hours as needed by mouth for mild pain. Active montelukast (SINGULAIR) 10 mg tabletIndications: Mild intermittent asthma without complication Take 1 tablet nightly by mouth. 90 tablet 1 06/12/19 25 Active meloxicam (MOBIC) 15 mg tabletIndications: Chronic left shoulder pain Take 1 tablet once daily by mouth. 90 tablet 1 06/12/19 25 Active amLODIPine (NORVASC) 5 mg tabletIndications: Primary hypertension Take 1 tablet once daily by mouth. 90 tablet 1 06/12/19 25 Active rosuvastatin (Crestor) 5 mg tabletIndications: Hyperlipidemia, unspecified hyperlipidemia type Take 1 tablet daily by mouth. 90 tablet 1 06/12/19 25 025 Discontinued Active Problems Problem Noted Date Diagnosed Date Hereditary hemochromatosis 03/06/2023 Assessment & Plan (05/12/2024 6:04 PM EDT): Continue to follow-up with hematology. Continue to monitor hemoglobin, ferritin, iron. Ductal carcinoma of right breast 03/06/2023 Assessment & Plan (06/11/2024 12:30 PM EDT): We will continue to monitor with mammograms, will refer patient for mammo. Patient status post lumpectomy, radiation, tamoxifen treatment. Orders: Screening Mammogram; Future Assessment & Plan (05/12/2024 6:04 PM EDT): Continue monitoring with mammograms. Last mammo September 2023. Mild intermittent asthma without complication Assessment & Plan (06/11/2024 12:30 PM EDT): Will refill montelukast. Continue as needed albuterol and montelukast 10 mg. Orders: montelukast (SINGULAIR) 10 mg tablet; Take 1 tablet nightly by mouth. Encounters Date Type Department Care Team Description 08/27/2024 4:00 PM EDT Office Visit Orthopaedics Main [address] [place] [address] Nick Walton PA-C Tendinitis involving right hip abductors (Primary Dx); Morbid (severe) obesity due to excess calories ([facility]); Type 2 diabetes mellitus with other specified complication, unspecified whether correction insulin use ([facility]); Greater trochanteric bursitis of right hip 08/26/2024 Results Follow-Up Orthopaedics Main [address] [place] [address] Nick Walton PA-C MRI HIP WITHOUT CONTRAST 08/24/2024 9:00 AM EDT Office Visit Internal Medicine Main [address] [place] [address] Antoine Salguero MD Medicare annual wellness visit, subsequent (Primary Dx) 08/18/2024 Results Follow-Up Internal Medicine Main [address] [place] [address] Antoine Salguero MD CBC WITH AUTOMATED DIFF, COMPREHENSIVE METABOLIC PANEL, LIPID PROFILE, HEMOGLOBIN A1C 07/28/2024 9:00 AM EDT Office Visit Orthopaedics Main [address] [place] [address] Nick Walton PA-C Chronic pain of right hip (Primary Dx); Greater trochanteric bursitis of right hip 06/11/2024 8:45 AM EDT Office Visit Internal Medicine Main [address] [place] [address] Antoine Salguero MD Primary hypertension (Primary Dx); Hyperlipidemia, unspecified hyperlipidemia type; Chronic left shoulder pain; Mild intermittent asthma without complication; Ductal carcinoma of right breast (CMS/HCC) from Last 3 Months Immunizations Immunization Administration Dates Next Due Influenza, Unspecified 12/03/2019,2018,12/05/2017,12/06,12/20/2015,01/04/2015,12/31/2013 Pneumococcal Conjugate PCV 2 0, Polysaccharide 07/10/2021 Family History Medical History Relation Name Comments Hemochromatosis Mother Relation Name Status Comments Mother Social History Tobacco Use Types Packs/Day Years Used Date Smoking Tobacco: Never Smokeless Tobacco: Never Tobacco Cessation:Counseling Given: Not Answered Alcohol Use Standard Drinks/Week Comments Yes 0 [...] often do you attend chur ch or nondenominational services? Never 08/24/2024 Do you belong to [...] and heating? Not hard at all 08/24/2024 [facility] - [...] any time in the past 12 m [facility] [place], were you homeless or living in a alf (including now)? No 08/24/2024 Comments Unknown Sex and Gender Information Value Date Recorded Sex Assigned at Not on file Legal Sex Female 11:20 AM EDT Gender Identity Not on file Sexual Orientation Not on file Last Filed Vital Signs Vital Sign Reading Time Taken Comments Blood Pressure 162/68 08/27/2024 4:00 PM EDT Pulse 72 08/27/2024 4:00 PM EDT Temperature 36.3 C (97.4 F) 08/24/2024 8:54 AM EDT Respiratory Rate 18 08/24/2024 8:54 AM EDT Oxygen Saturation 96% 08/24/2024 8:54 AM EDT Inhaled Oxygen Concentration - - Weight 100.6 kg (221 lb 11.2 oz) 08/27/2024 4:00 PM EDT Height 167.6 cm (5' 6 ) 08/27/2024 4:00 PM EDT Body Mass Index 35.78 08/27/2024 4:00 PM EDT Plan of Treatment Upcoming Encounters Date Type Department Care Team (Late st Contact Info) Description 11/24/2024 8:00 AM EDT Office Visit Internal Medicine Main [address] [place] [address] Antoine Salguero MD [address] [place] [address] 04/28/2025 8:00 AM EST Office Visit Dermatology [place] [address] [place] [address] Ludy Das PA [address] [place] [address] Health Maintenance Due Date Last Done Comments CT Virtual Colonoscopy 1955 DEXA Scan 1955 FOBT (Colorectal Cancer Screening) 1955 Diabetic Eye Exam 01/07/1964 Foot Exam 01/07/1964 Complete Physical 01/07/1972 Health Maintenance Reviewed 01/07/1972 Zoster (Shingrix) Vaccines (1 of 2) 1973 Clinical Breast Exam 1994 Cologuard (Colorectal Cancer Screening) 01/07/2004 COVID-19 Vaccine (3 - Pfizer risk series) 06/13/2020 05/16/2020, 04/25/2020 Influenza Vaccine (#1) 2024 , 12/02/2019, 12/08/2018, Additional history exists Hemoglobin A1C 02/16/2025 08/17/2024 Total Body Exam 04/22/2025 04/22/2024 Cognitive Assessment 08/24/2025 08/24/2024 Medicare Wellness Visit 08/24/2025 08/24/2024 Colonoscopy 05/14/2027 05/13/2024, 04/03/2018 Colorectal Cancer Screening 05/14/2027 Lipid Panel 08/17/2029 08/17/2024 Pneumococcal Vaccine: 65+ Years Discontinued 07/10/2021 Mammogram Discontinued 07/20/2021, 07/02, 06/20/2020, Additional history exists DTaP,Tdap,and Td Vaccines Discontinued HIB Vaccines Aged Out No longer eligi ble based on patient's age to complete this topic HPV Vaccines Aged Out No longer eligi ble based on patient's age to complete this topic Hepatitis A Vaccines Aged Out No long er eligible based on patient's age to complete this topic Hepatitis C Screening Discontinued IPV Vaccines Aged Out No longer eligi ble based on patient's age to complete this topic MMR Vaccines Discontinued Meningococcal Vaccine Aged Out No blanca eladia eligible based on patient's age to complete this topic Pap Smear Discontinued RSV Immunization Discontinued Varicella Vaccines Discontinued Procedures Procedure Name Priority Date/Time Associated Diagnosis Comments MRI HIP WITHOUT CONTRAST Routine 08/26/2024 12:43 PM EDT Chronic pain of right hip HEMOGLOBIN A1C Routine 08/17/2024 10:54 AM EDT Primary hypertension Hyperlipidemia, unspecified hyperlipidemia type LIPID PROFILE Routine 08/17/2024 10:54 AM EDT Primary hypertension Hyperlipidemia, unspecified hyperlipidemia type COMPREHENSIVE METABOLIC PANEL Routine 08/17/2024 10:54 AM EDT Primary hypertension Hyperlipidemia, unspecified hyperlipidemia type CBC WITH DIFF Routine 08/17/2024 10:54 AM EDT Primary hypertension Hyperlipidemia, unspecified hyperlipidemia type COLONOSCOPY (G0121) Routine 05/13/2024 Screening for malignant neoplasm of colon from Last 3 Months or Most Recently Relevant to Health Maintenance Results * MRI HIP WITHOUT CONTRAST (08/26/2024 12:43 PM EDT) Anatomical Region Laterality Modality Other 08/26/2024 12:4 3 PM EDT Impressions 08/26/2024 2:20 PM EDT [facility], [place] [address] Patient Name: SERA ALAMO MARMRN: [id number] : 1955 Requesting Physician: NICK WALTON Exam: MRI HIP RIGHT Date Completed: 08/26/2024 12:43 PM CLINICAL HISTORY: Right hip pain. TECHNIQUE: Multiplanar, multisequence images of the pelvis and right hip were obtained. FINDINGS: Heterogeneous marrow signal is seen. No evidence of fracture or AVN. No evidence of sacral insufficiency fracture. Flexors are intact. Tendinosis of both hamstrings without evidence of high-grade tear. Tendinosis of both abductors with trochanteric bursitis. Low-grade partial tear of the left gluteus medius is noted involving the anterior fibers. High-grade tear is not visualized. Small [id number] of the right hip demonstrates intact joint space. However, there is subchondral cystic change to the anterosuperior acetabulum as well as degenerative labral tear. IMPRESSION: * No evidence of fracture or AVN. * Tendinosis of both abductors with trochanteric bursitis without evidence of high-grade tear. * Tendinosis of both hamstrings. Edited at 08/26/2024 12:52 PM Dictated byCamille) MD Tam at 08/26/2024 12:45 PM Dictated: 08/26/2024 14:17:34 AUTHENTICATED BY: Camille Turcios MD 08/26/2024 14:20:00 Narrative Procedure Note Camille Turcios MD - 08/26/2024 IMPRESSION: [facility], [place] [address] [id number] : 1955 Requesting Physician: NICK WALTON Exam: MRI HIP RIGHT Date Completed:08/26/2024 12:43 PM CLINICAL HISTORY: Right hip pain. TECHNIQUE: Multiplanar, multisequence images of the pelvis and right hip were obtained. FINDINGS: Heterogeneous marrow signal is seen. No evidence of fracture or AVN. No evidence of sacral insufficiency fracture. Flexors are intact. Tendinosis of both hamstrings without evidence of high-grade tear. Tendinosis of both abductors with trochanteric bursitis. Low-gradepartial tear of the left gluteus medius is noted involving the anterior fibers. High-grade tear is not visualized. Small zjkpf-ke-azwj of the right hip demonstrates intact joint space. However, there is subchondral cystic change to the anterosuperior acetabulum as well as degenerative labral tear. IMPRESSION: * No evidence of fracture or AVN. * Tendinosis of both abductors with trochanteric bursitis withoutevidence of high-grade tear. * Tendinosis of both hamstrings. Edited at 08/26/2024 12:52 PM Dictated byCamille) MD Tam at 08/26/2024 12:45 PM Dictated: 08/26/2024 14:17:34 AUTHENTICATED BY: Camille Turcios MD 08/26/2024 14:20:00 Nick FREED IMG MRI PROCEDURES Final Re sult * (ABNORMAL) HEMOGLOBIN A1C (08/17/2024 10:54 AM EDT) Hemoglobin A1C 6.0(H) 4.2 - 5.6 % [facility] Comment: HEMOGLOBIN A1C GLUCOSE CONTROL INDEX < 5.7% Non-diabetic level 5.7 - 6.4% Pre-diabetic level or Very Well Controlled for persons with prior diabetes diagnosis 6.5 - 7% Diabetic level - Well Controlled - Reduced risk of diabetic related complications 7 - 8% Uncontrolled Diabetes - fair (moderate risk of diabetic related complications) 8-9% Uncontrolled Diabetes - poor (moderate to high risk of diabetic related complications) >9% Uncontrolled Diabetes - very poor (high risk of diabetic related complications) Below 7% is the general goal for non- persons with diabetes and without hypoglycemia. Your individual goal may be different based on age, other comorbidities and risk of hypoglycemia. Caution if on insulin or insulin stimulating medications, which may increase the risk of hypoglycemia. Diabetic related complications include chronic kidney disease, heart disease, neuropathy, diabetic eye disease, increased infections, and poor wound healing. A hemoglobin variant may cause a negatively biased result. Blood 08/17/2024 10:5 4 AM EDT 08/17/2024 11:13 AM EDT Antoine FREED LAB BLOOD ORDERABLES Final Result [facility] [address] [place] [address], * CBC WITH AUTOMATED DIFF (08/17/2024 10:54 AM EDT) WBC 8.8 4.2 - 10.8 10*3/uL [facility] RBC 4.61 4.20 - 5.40 10*6/uL [facility] HGB 14.6 12.0 - 16.0 g/dL [facility] Hematocrit 42.4 37.0 - 47.0 % [facility] MCV 91.9 81.0 - 99.0 fL [facility] MCH 31.6 27.0 - 33.0 pg [facility] MCHC 34.4 32.5 - 36.0 g/dL [facility] RDW 12.8 11.5 - 14.5 % [facility] PLATELET 252 130 - 400 10*3/uL [facility] MPV 7.3 7.3 - 10.4 fL [facility] NEUTROPHIL% 66.0 42.2 - 75.1 % [facility] LYMPH% 26.3 20.5 - 50.0 % [facility] MONO% 5.8 2.0 - 12.0 % [facility] EO% 1.6 0.0 - 8.0 % [facility] BA% 0.3 0.0 - 2.0 % [facility] NEUTROPHIL# 5.8 1.4 - 6.5 10*3/uL [facility] LY# 2.3 1.2 - 3.4 10*3/uL [facility] MONO# 0.5 0.1 - 0.9 10*3/uL [facility] EO# 0.1 <0.5 10*3/uL [facility] BASO# 0.0 <0.2 10*3/uL [facility] Blood 08/17/2024 10:5 4 AM EDT 08/17/2024 11:56 AM EDT Antoine Salguero MD LAB BLOOD ORDERABLES Final Result [facility] [address] [place] [address], * (ABNORMAL) LIPID PROFILE (08/17/2024 10:54 AM EDT) TRIGLYCERIDE 173(H) <150 mg/dL [facility] Cholesterol 204(H) <=200 mg/dL [facility] HDL 66(H) 40 - 60 mg/dL [facility] LDL Calculated 109 mg/dL [facility] CHOL/HDL RATIO 3.1 [facility] Comment: Calculated LDL may be inaccurate when the Triglycerides are >400 mg/dL. Consider ordering a Direct LDL (DLDL). Direct LDL will automatically be performed if the calculated LDL is < or = to 0. HDL may be inaccurate when Triglycerides are >900 mg/dL. LDL-C is now calculated using the Yoan-Salmon calculation, which is a validated method providing better accuracy than the Friedewald equation in the estimation of LDL- C. Yoan SS et al. EMIGDIO 2013:310(19): 7679-1323 Non HDL Chol. (LDL+VLDL) 138 [facility] Comment: Calculated LDL may be inaccurate when the Triglycerides are >400 mg/dL. Consider ordering a Direct LDL (DLDL). Direct LDL will automatically be performed if the calculated LDL is < or = to 0. HDL may be inaccurate when Triglycerides are >900 mg/dL. LDL-C is now calculated using the Yoan-Salmon calculation, which is a validated method providing better accuracy than the Friedewald equation in the estimation of LDL- C. Yoan SS et al. EMIGDIO 2013:310(19): 2944-5633 Blood 08/17/2024 10:5 4 AM EDT 08/17/2024 12:57 PM EDT Antoine Salguero MD LAB BLOOD ORDERABLES Final Result [facility] [address] [place] [address], * (ABNORMAL) COMPREHENSIVE METABOLIC PANEL (08/17/2024 10:54 AM EDT) Sodium 141 136 - 145 mmol/L [facility] Potassium 5.2(H) 3.5 - 5.1 mmol/L [facility] Comment:SPECIMEN APPEARS [place]EEPI[place] AR. Chloride 102 98 - 107 mmol/L [facility] CO2 29 22 - 29 mmol/L [facility] Glucose 128(H) 70 - 99 mg/dL [facility] Fasting? Unknown [facility] Creatinine 0.80 0.70 - 1.20 mg/dL [facility] GFR ESTIMATE CKD-EPI 79 >=60 [facility] Comment: Reported eGFR is based on the CKD-EPI 2020 equation that does not use a race coefficient. Average GFR for 70+ year old = 75 ml/min/1.73m2 Chronic kidney Disease < 60 ml/min/1.73m2 Kidney failure < 15 ml/min/1.73m2 BUN, Bld 16 6 - 23 mg/dL [facility] Total Protein 6.6 5.7 - 7.6 g/dL [facility] Albumin 4.6 3.9 - 4.9 g/dL [facility] Calcium 9.8 7.6 - 10.4 mg/dL [facility] Total Bilirubin 0.6 <=1.2 mg/dL [facility] Alkaline Phosphatase 107 40 - 129 U/L [facility] AST 17 10 - 50 U/L [facility] ALT (SGPT) 18 10 - 50 U/L [facility] Blood 08/17/2024 10:5 4 AM EDT 08/17/2024 12:58 PM EDT Antoine Salguero MD LAB BLOOD ORDERABLES Final Result [facility] [address] [place] [address], * Colonoscopy Screening - MEDICARE (G0121) (05/13/2024) [facility] PROC ORDERABLES Final Result from Last 3 Months or Most Recently Relevant to Health Maintenance Insurance MEDICARE PART B GENERIC COMMERCIAL Care Teams Ibm Mainframe Developer Relationship Specialty Start Date End Date Antoine Salguero MD [address] [place] [id number] PCP - General 03/06/23
--- OUTSIDE RECORDS SUMMARY | 2024-09-04 13:40 | XMS_ITS | Clinical Summary ---
Author Organization [facility] [facility] Address [id number] [address] [place] [address] Care Team Providers Care Line Locator Name Role Phone Alyssa Navarrete MD Primary Care Provider [phone] Allergies No known active allergies Medications meloxicam (MOBIC) 15 mg tabletIndication s:osteoarthritis Take 15 mg by mouth daily Indications : Osteoarthri tis. Active tamoxifen (NOLVADEX) 20 mg chemo tabletIndication s:BREAST CANCER Take 20 mg by mouth daily Indications : BREAST CANCER. Active venlafaxine (EFFEXOR) 37.5 mg tablet Take 37.5 mg by mouth 2 (two) times a day. Take 1 tablet every other day. Active albuterol (PROVENTIL HFA;VENTOLIN HFA) 90 mcg/actuation inhaler 05/07/2019 Active Active Problems No known active problems Immunizations Immunization Administration Dates Next Due COVID-19, mRNA, LNP-S, PF, 30mcg/0.3mL Dose 05/02,04/25/2020 Family History Medical History Relation Name Comments Liver disease Father Ovarian cancer Mother Lung cancer Sister Relation Name Status Comments Father Mother Sister Alive Social History Tobacco Use Types Packs/Day Years Used Date Smoking Tobacco: Never Smokeless Tobacco: Never Alcohol Use Standard Drinks/Week Comments Yes 0 (1 standard drink = 0.6 oz pur e alcohol) occasionally Childcare Answer Date Recorded Childcare Unknown 08/13/2018 Employment Answer Date Recorded Employment Unknown 08/13/2018 Purpose - Life Answer Date Recorded Purpose and direction in life Unknown Comments Unknown Sex and Gender Information Value Date Recorded Sex Assigned at Female 10/22/2022 7:44 PM EDT Legal Sex Female 11:27 AM EDT Gender Identity Female 10/22/2022 7:44 PM EDT Sexual Orientation Straight 10/22/2022 7: 44 PM EDT Last Filed Vital Signs Vital Sign Reading Time Taken Comments Blood Pressure 142/78 07/01/2019 8:36 AM EDT Pulse 77 07/10/2018 10:54 AM EDT Temperature 37.3 C (99.1 F) 07/01/2019 8:36 AM EDT Respiratory Rate 18 07/09/2017 2:11 PM EDT Oxygen Saturation 99% 07/10/2018 10:54 AM EDT Inhaled Oxygen Concentration - - Weight 113.4 kg (250 lb) 07/01/2019 8:36 AM EDT Height 169 cm (5' 6.54 ) 07/01/2019 8:36 AM EDT Body Mass Index 39.7 07/01/2019 8:36 AM EDT Plan of Treatment Health Maintenance Due Date Last Done Comments Depression Screening 1966 Tobacco Screening 1966 Adult BMI Screening 01/07/1972 DTaP,Tdap and Td Vaccines (1 - Tdap) 1973 Zoster (Shingles) Vaccine (2 of 2) 01/02/2019 11/07/2018 Fall Risk Screening 2019 COVID-19 Vaccine (3 - 2023-2 5 season) 2023 05/16/2020, 04/25/2020 Influenza Vaccine 11/02/2024 11/29/2020, , 12/02/2019, Additional history exists Medical Devices Not on file Insurance MEDICARE COMMERCIAL Care Teams Line Locator Relationship Specialty Start Date End Date Alyssa Navarrete MD PCP - General Family Medicine 03/10/19
--- NOTE | 2024-09-04 13:45 | XR_ITS ---
The [address] [address] Patient Name: HOLLEY ALAMO MRN: [id number] date: 1955 Sex: F Assigned Patient Location: ER Current Patient Location: ER Accession/Order Number: [id number] Exam Date: 09/04/2024 14:31 Report Date: 09/04/2024 14:36 At the request of: OCTAVIO AARON MD Procedure: XR ribs RT min 3V w CXR1V PA CHEST WITH RIGHT-SIDED RIBS: CLINICAL HISTORY: Fall, pain COMPARISON: None FINDINGS: Unremarkable cardiomediastinal. Lungs clear. No effusion or pneumothorax. No evidence of acute displaced right-sided rib fracture. Degenerative changes of the thoracic spine. XR/XR ribs RT min 3V w CXR1V IMPRESSION: No evidence of displaced rib fracture. Negative acute pleural-parenchymal disease. Impression dictated by: Ector Cedillo M.D. 09/04/2024 2:36 PM Dictation Location: [place] [address] Electronically authenticated by: [id number] Y Date: 09/04/2024 14:36
--- NOTE | 2024-09-04 13:45 | XR_ITS ---
The [place] [address] Patient Name: HOLLEY ALAMO MRN: [id number] date: 1955 Sex: F Assigned Patient Location: ER Current Patient Location: ER Accession/Order Number: [id number] Exam Date: 09/04/2024 14:23 Report Date: 09/04/2024 14:26 At the request of: OCTAVIO AARON MD Procedure: XR hand RT min 3V Right hand, 3 views INDICATION: Attention fourth digit pain FINDINGS: No fracture or dislocation identified. Degenerative changes notably involving the DIP joints loss of the PIP joints. Mild carpal degenerative changes of the radiocarpal joint space narrowing. Soft tissues are grossly unremarkable. XR/XR hand RT min 3V IMPRESSION: Osteoarthritic changes. Negative acute fracture.. Impression dictated by: Ector Cedillo M.D. 09/04/2024 2:26 PM Dictation Location: [place] [address] Electronically authenticated by: [id number] Y Date: 09/04/2024 14:26
--- NOTE | 2024-09-04 13:48 | ED.GENADUL1 ---
HPI HPI - General Adult General Chief complaint: Back Pain/Injury Stated complaint: FALL/BACK PAIN Time Seen by Provider: 09/04/24 13:41 Source: patient Mode of arrival: walk-in Limitations: no limitations History of Present Illness HPI narrative: 69-year-old female presents to the emergency department for pain to her right lateral ribs and her right ring finger. Yesterday she fell in the kitchen and went forward and landed on the floor. She did not hit her head. She believes she must of bent her right fourth finger back when she fell and the other fingers do not hurt. No chest pain or abdominal pain. No shortness of breath. Related Data Home Medications �Medication �Instructions �Recorded �Confirmed amlodipine 5 mg tablet 5 mg PO DAILY 09/04/24 09/04/24 meloxicam 15 mg tablet 15 mg PO DAILY 09/04/24 09/04/24 montelukast 10 mg tablet 10 mg PO DAILY 09/04/24 09/04/24 Allergies Allergy/AdvReac Type Severity Reaction Status Date / Time No Known Drug Allergies Allergy Verified 09/04/24 13:34 Opioid HPI Opioid Management Most Recent Opioid Data: Last Pain Scale 9 Today, 13:34 Review of Systems ROS Narrative A ten point review of systems is negative except as noted above. PFSH PFSH Social History Little interest or pleasure in doing things: not at all Feeling down, depressed, or hopeless: not at all Exam Narrative Exam Narrative: Nurses note and vital signs reviewed and patient is not hypoxic. General: The patient appears well and in no apparent distress. Patient is resting comfortably on cart. Skin: Warm, dry, no pallor noted. There is no rash noted. Head: Normocephalic, atraumatic Eye: Normal conjunctiva, no drainage Ears, Nose, Mouth, and Throat: oral mucosa is moist. Nares patent. Cardiovascular: Regular Rate and Rhythm Respiratory: Patient is in no distress, no accessory muscle use, lungs are clear to auscultation, no wheezing, rales or rhonchi Back: Cervical thoracic and lumbar spines are nontender. She has tenderness to palpation of the right posterior lateral rib region without crepitus bruise or abrasion GI: Normal bowel sounds, no tenderness to palpation, no masses appreciated. No rebound, guarding, or rigidity noted. Musculoskeletal: Right hand is examined. The fourth finger is bruised and somewhat swollen. Neurological: A&O, normal speech Psychiatric: Cooperative Constitutional Vital Signs, click to edit/add: Last Vital Signs Temp 99.2 F 09/04/24 13:34 Pulse 84 09/04/24 13:34 Resp 18 09/04/24 13:34 BP 177/70 H 09/04/24 13:34 Pulse Ox 97 09/04/24 13:34 O2 Del Method Room Air 09/04/24 13:34 Course Vital Signs Vital signs: Vital Signs Temperature 99.2 F 09/04/24 13:34 Pulse Rate 84 09/04/24 13:34 Respiratory Rate 18 09/04/24 13:34 Blood Pressure 177/70 H 09/04/24 13:34 Pulse Oximetry 97 09/04/24 13:34 Oxygen Delivery Method Room Air 09/04/24 13:34 Temperature 99.2 F 09/04/24 13:34 Pulse Rate 84 09/04/24 13:34 Respiratory Rate 18 09/04/24 13:34 Blood Pressure 177/70 H 09/04/24 13:34 Pulse Oximetry 97 09/04/24 13:34 Oxygen Delivery Method Room Air 09/04/24 13:34 Medical Decision Making MDM Narrative Medical decision making narrative: Rib films are negative per radiologist. Radiologist read her hand x-ray is negative but I believe that she has an avulsion fracture from her fourth finger middle phalanx proximally, seen on the lateral view. She has bruising and tenderness and swelling and pain in this area. Splint applied, application checked by me and found to be appropriate, she is neurovascularly intact. X-ray findings were discussed with the patient and she was told by me that I believe that she has a finger fracture. She has an orthopedist in [place] with whom she will follow-up. Treatment diagnosis and follow-up were discussed with the patient. Differential Diagnosis Differential Diagnosis: Finger sprain, finger fracture, rib fracture, pneumothorax, muscle Imaging Data Hand x-ray, ribs: Radiologist's impression: ITS Impressions Hand X-Ray 09/04/24 13:45 IMPRESSION: Osteoarthritic changes. Negative acute fracture.. Impression dictated by: Ector Cedillo M.D. 09/04/2024 2:26 PM Dictation Location: [place] [address] Electronically authenticated by: [id number] Y Date: 09/04/2024 14:26 Ribs X-Ray 09/04/24 13:45 IMPRESSION: No evidence of displaced rib fracture. Negative acute pleural-parenchymal disease. Impression dictated by: Ector Cedillo M.D. 09/04/2024 2:36 PM Dictation Location: [place] [address] Electronically authenticated by: [id number] Y Date: 09/04/2024 14:36 Discharge Plan Discharge Chief Complaint: Back Pain/Injury Clinical Impression: Finger fracture, Chest wall muscle strain Patient Disposition: Home, Self-Care Time of Disposition Decision: 15:18 Condition: Good Mode of Transportation: Private Vehicle Prescriptions / Home Meds: No Action meloxicam 15 mg tablet 15 mg PO DAILY amlodipine 5 mg tablet 5 mg PO DAILY montelukast 10 mg tablet 10 mg PO DAILY Print Language: Nicaraguan Instructions: Muscle Strain (ED), Finger Fracture (ED) Additional Instructions: See your orthopedist in [place]. Referrals: Physician,Non-Staff, MD [Primary Care Provider] - 1 week
[2024-09-04 15:48] VITALS: BP 158/72; PULSE 75; O2SAT 96
== END 2024-09-04 15:50 | disposition home or self-care (01) ==
PROVIDERS: Emergency Provider Emergency Medicine
DX: S29.011A Strain of muscle and tendon of front wall of thorax, initial encounter (principal); S62.624A Displaced fracture of middle phalanx of right ring finger, initial encounter for closed fracture; W18.39XA Other fall on same level, initial encounter; Y92.000 Kitchen of unspecified non-institutional (private) residence as the place of occurrence of the external cause
CPT/HCPCS: 29130; 71101; 73130; 99283